=== PATIENT | female | born 1950 | race Caucasian/White ===

== ENCOUNTER 2016-10-14 07:57 | Day surgery (SDC) | payer MEDICARE ==
[~2016-10-14 07:57] MED LIST: ALLO300T2 PO; CILO100T PO; FURO40TA PO; GABA100C4 PO; HUMA100I3 SQ; HYDR500C2 PO; INSU1INJ5 SQ; IRON28TA PO; LEVEMIR SQ; MURO5SOL RIGHT EYE; NEPA0.3D EACH EYE; OMEP20TA PO; OXYC1TAB63 PO; PROP120C PO; SPIR50TA PO; VITA200012 PO; XARE10TA PO
[2016-10-14] MEDS ORDERED: ALBUMIN HUMAN 25% 25 GM/100 ML BAGP IV ONE (09:30)
[2016-10-14 11:20] VITALS: BP 139/70; PULSE 75; RESP 19; TEMP 98.5; O2SAT 95
[2016-10-14 11:35] VITALS: BP 122/63; PULSE 76; RESP 18; O2SAT 96
--- NOTE | 2016-10-14 11:44 | RADRPT ---
EXAM DATE/TIME: 10/14/2016 08:59 [facility] COMPARISON: No previous studies available for comparison. EXTERNAL COMPARISON: [facility], US LIVER VASCULATURE - COMPLETE, Oct 07 2016 INDICATIONS : Ascites. MEDICAL HISTORY : Cirrhosis. Hiatal hernia. Diabetes. Renal disease. SURGICAL HISTORY : Umbilical hernia repair with mesh. Portal vein thrombosis. ENCOUNTER: Initial ACUITY: 1 day PAIN SCORE: 0/10 LOCATION: Right lower quadrant FLUID: Total volume of 5,400 cc of clear, yellow fluid was removed. Fluid was sent to lab for ordered studies. Post procedure scanning reveals no hematoma or other complication. TECHNIQUE: 1. Ultrasound guidance for abdominal paracentesis. 2. Paracentesis. The risks, benefits, and alternatives to ultrasound guided paracentesis were explained to the patient in detail including the risk of bleeding and infection. Written and verbal informed consent was obt ained. With the patient on the ultrasound table, ultrasound imaging was used to select the most appropriate approach for paracentesis. Overlying skin was prepped and draped in the usual sterile fashion and wi th a local anesthetic, a dermatotomy was made with an 11 blade scalpel. A 6 [employer] [id number] ca theter was introduced into the peritoneal cavity and fluid was collected. The patient tolerated the procedure well and left the ultrasound suite in stable condition. CONCLUSION: Uncomplicated ultrasound guided paracentesis. Fluid was sent to the lab for studies. Richar Abdi MD FACR on October 14, 2016 at 11:42 Board Certified Radiologist. This report was verified electronically.
--- NOTE | 2016-10-14 15:02 | RADRPT ---
EXAM DATE/TIME: 10/14/2016 11:32 [facility] COMPARISON: US GUIDED ABD PARACENTESIS, October 14, 2016, 8:59. EXTERNAL COMPARISON : [facility], US LIVER VASCULATURE - COMPLETE, October 07, 2016 INDICATIONS : Evaluate for TIPs. MEDICAL HISTORY : Hernia, hiatal. Hernia, umbilical. Diabetes. Renal disease. Portal vein thrombosis. SURGICAL HISTORY : Umbilical hernia repair. ENCOUNTER: Initial ACUITY: 1 week PAIN SCORE: 0/10 LOCATION: Right upper quadrant MEASUREMENTS: LIVER: 14.2 cm length COMMON DUCT: 6 mm RIGHT KIDNEY: 10.8 x 5.0 x 4.9 cm SPLEEN: 23.9 cm length FINDINGS: LIVER: The exam demonstrates heterogeneous increased echotexture the liver. The liver is quite small. The ex am is consistent with cirrhosis. No mass lesion is identified. Examination of the liver vasculature demonstrates the hepatic veins to be patent. The main portal vei n and intrahepatic veins appear patent. The hepatic artery is patent. COMMON DUCT: No intraluminal mass or stone visualized. GALLBLADDER: The gallbladder is contracted. No pericholecystic fluid is seen. PANCREAS: The visualized portions are within normal limits. RIGHT KIDNEY: The cortex of the right kidney is echogenic suggesting underlying medical renal disease. SPLEEN: The spleen is enlarged. CONCLUSION: 1. The portal venous and hepatic venous system are patent. The liver is cirrhotic appearing. The sple en is enlarged. Exam would suggest portal hypertension. 2. Contracted gallbladder. 3. There is only a trace amount of ascites identified. 4. Echogenic right kidney suggesting underlying medical renal disease. Giorgi Abdi MD on October 14, 2016 at 14:51 Board Certified Radiologist. This report was verified electronically.
[2016-10-14] MEDS ORDERED: LIDOCAINE HCL 1% PF 30 ML VIAL ONE (16:29)
== END 2016-10-14 12:35 | disposition home or self-care (01) ==
LOC: HRAD 07:57 → HRIP 07:58 → HRAD 12:35
PROVIDERS: ATTEND Internal Medicine Gastroenterology
DX: R18.8 Other ascites (principal); K74.60 Unspecified cirrhosis of liver; R16.1 Splenomegaly, not elsewhere classified; E11.9 Type 2 diabetes mellitus without complications
CPT/HCPCS: 49083; 76705; 96365; C1729; P9047; 88112; 88305